=== PATIENT | male | born 1955 | race Caucasian/White ===

== ENCOUNTER 2017-03-17 02:20 | Emergency (ER) | payer BC, MEDICAID ==
[2017-03-17] MEDS ORDERED: Aspirin 81 MG Tab.Chew ONE (02:56)
[2017-03-17] MEDS ORDERED: Morphine 2 MG/ML Syringe ONE (02:56)
[2017-03-17] MEDS ORDERED: Ketorolac 60 MG/2 ML SDV ONE (03:02)
[2017-03-17 04:37] VITALS: BP 147/82
--- NOTE | 2017-03-17 09:10 | CR ---
Chest 2V FINDINGS: The heart and vascular structures are normal in appearance. No infiltrates or effusions ar e demonstrated. The skeletal structures are unremarkable. IMPRESSION: Negative exam.
== END 2017-03-17 03:53 | disposition home or self-care (01) ==
LOC: JP.ED 02:20
DX: R07.89 Other chest pain (principal); Z72.0 Tobacco use
CPT/HCPCS: 36415; 71020; 80053; 82553; 84484; 85025; 99285; J1885; 93005

== ENCOUNTER 2021-04-25 07:25 | Day surgery (SDC) | payer MEDICARE, BC ==
[2021-04-25] MEDS ORDERED: Midazolam 1 MG/ML 2 ML SDV ONE (07:32)
[2021-04-25] MEDS ORDERED: fentaNYL 100 MCG/2 ML SDV ONE (07:32)
[2021-04-25] MEDS ORDERED: Propofol 200 MG/20 ML SDV ONE (07:32)
[2021-04-25] MEDS ORDERED: Sodium Chloride 0.9% 1,000 ML IV SCH (08:00)
[2021-04-25 10:54] VITALS: BP 137/73; PULSE 66
--- NOTE | 2021-04-25 15:21 | OR ---
DATE OF PROCEDURE: 04/25/2021 SURGEON: Christiano Rojas MD PROCEDURE: Colonoscopy. FINDINGS: Diverticulosis, mild, limited to sigmoid colon. PREOPERATIVE DIAGNOSIS: Screening colonoscopy. POSTOPERATIVE DIAGNOSIS: Screening colonoscopy. RISKS: Risks, benefits, alternatives, and limitations including, but not limited to infection, bleeding, perforation, false positives and false negatives were explained to the patient, who wished to proceed. PROCEDURE IN DETAIL: The patient was placed in left lateral decubitus position. The colonoscope was introduced and advanced atraumatically to the ileocecal valve. A photo was taken of appendiceal orifice. The scope was brought back to the ascending, transverse, descending colon, and retroflexed. No evidence of old or new blood. No masses. There were no polyps. The diverticulosis would be described as mild, mostly limited to sigmoid colon without evidence of diverticulitis or bleeding. Greater than 8 minutes was spent removing the scope. No abnormalities on retroflexion. The patient tolerated the procedure well. Greater than 90% of luminal surface could be seen. Christiano Rojas MD /[id number]
== END 2021-04-25 10:48 | disposition home or self-care (01) ==
LOC: JP.SDS 07:25
PROVIDERS: ATTEND Surgery
DX: K57.30 Diverticulosis of large intestine without perforation or abscess without bleeding (principal); G47.33 Obstructive sleep apnea (adult) (pediatric); I10 Essential (primary) hypertension; J45.909 Unspecified asthma, uncomplicated; Z88.8 Allergy status to other drugs, medicaments and biological substances
CPT/HCPCS: J2250; J2704; J3010